=== PATIENT | female | born 1960 | race Caucasian/White ===

== ENCOUNTER → 2021-08-23 | Outpatient (CLI) | payer BC ==
--- NOTE | 2021-08-23 10:30 | RAD ---
EXAM: Supine AP view of the abdomen DATE: 08/23/2021 10:10 AM INDICATION: Reason: CALCULUS OF KIDNEY HX RENAL STONE REMOVED 6 WKS AGO COMPARISON: No Prior FINDINGS: No abnormal small or large bowel dilatation. Moderate colonic stool content. No abnormal soft tissu e mass effect. No suspicious calcifications are seen. Evaluation for free intraperitoneal gas is li mited on this supine exam. IMPRESSION: 1. No evidence for bowel obstruction. Electronically signed by: Jorge Huddleston MD (08/23/2021 10:28 AM) [id number]
--- NOTE | 2021-08-23 10:36 | RAD ---
EXAM: Renal sonogram. HISTORY: Nephrolithiasis. TECHNIQUE: Sonographic imaging of the kidneys and bladder was performed. COMPARISON: None. FINDINGS: The kidneys are normal in size. No solid or cystic renal lesion is seen. There is no hydron ephrosis. The aorta is normal in caliber. The inferior vena cava is patent. The bladder is unremarkab le. The post void bladder volume is 23 cc. There are incidental splenic granulomas. IMPRESSION: Sonographically unremarkable kidneys. Electronically signed by: Brianne Londono MD (08/23/2021 10:34 AM) [id number]
== END ==
LOC: US 09:48
PROVIDERS: ATTEND Urology
DX: D73.89 Other diseases of spleen (principal); N20.0 Calculus of kidney
CPT/HCPCS: 74018; 76770